=== PATIENT | male | born 1985 | race Caucasian/White ===

== ENCOUNTER 2020-06-04 19:44 | Emergency (ER) | payer OTHER, SELFPAY ==
[2020-06-04] MEDS ORDERED: FENTANYL CITR 100 MCG/2 ML ONE (20:02)
[2020-06-04] MEDS ORDERED: NA CHLORIDE 0.9% 1,000 ML ONE (20:03)
[2020-06-04] MEDS ORDERED: CEFAZOLIN/SWI 1gm 1 GM/10 ML SYR ONE (20:07)
[2020-06-04] MEDS ORDERED: TETANUS & DIPHTHERIA TOX,ADULT 0.5 ML VIAL ONE (20:12)
[2020-06-04] MEDS ORDERED: ONDANSETRON 4 MG/2 ML VIAL ONE (20:20)
[2020-06-04 20:23] LABS: Absolute Lymphocytes (CBC) 5.1 K/uL (0.7-4.9); Basophils % 0.7 % (0-1.3); Hematocrit 45.6 % (39.6-49.0); Lymphocytes % 45.3 % (15.3-44.8); MPV 8.5 fL (7.6-11.3)
[2020-06-04 20:24] LABS: Protime INR 1.02
[2020-06-04 20:39] LABS: ALT/SGPT 63 U/L (12-78); AST/SGOT 43 U/L (15-37); Albumin 4.2 g/dL (3.4-5.0); Alkaline Phosphatase 83 U/L (45-117); BUN Blood Urea Nitrogen 9 mg/dL (7-18); Bicarbonate 22 mmol/L (21-32); Bilirubin Direct < 0.1 mg/dL (0-0.2); Bilirubin Total 0.3 mg/dL (0.2-1.0); Glucose Level 115 mg/dL (74-106); Potassium 3.5 mmol/L (3.5-5.1); Protein, Total 8.5 g/dL (6.4-8.2); Sodium Level 142 mmol/L (136-145); Troponin (Emerg Dept Use Only) < 0.02 ng/mL (0.0-0.045)
--- NOTE | 2020-06-04 21:03 | RAD REPORT ---
EXAM DESCRIPTION: CT - Facial Bones W/ Mpr - 06/04/2020 8:31 pm CLINICAL HISTORY: Facial injury status post fall with facial pain COMPARISON: None TECHNIQUE: Computed axial tomography of the face was obtained. Coronal and sagittal reconstruction w as performed. All CT scans are performed using dose optimization technique as appropriate and may include automated exposure control or mA/KV adjustment according to patient size. FINDINGS: Laceration involves the soft tissue anterior to the left maxilla extending inferiorly. A couple tiny avulsed bone fragments from the anterior cortex of the left mandible near midline. Mildly displaced fracture of the left maxillary alveolar ridge. The underlying incisor tooth is absen t. Nondisplaced fracture anterior wall left maxillary sinus. No TMJ dislocation Globes are intact IMPRESSION: Laceration involves the soft tissue anterior to the left maxilla extending inferiorly. A couple tiny avulsed bone fragments from the anterior cortex of the left mandible near midline. Mildly displaced fracture of the left maxillary alveolar ridge. The underlying incisor tooth is absen t. Nondisplaced fracture anterior wall left maxillary sinus.
[2020-06-04] MEDS ORDERED: MORPHINE 4 MG/ML SYR ONE ×2 (21:04→22:41)
--- NOTE | 2020-06-04 21:05 | RAD REPORT ---
EXAM DESCRIPTION: CT - Head C Spine Cap Clare Francisco - 06/04/2020 8:31 pm CLINICAL HISTORY: Head and neck injury with chest and abdominal pain status post fall. Head and neck pain . TECHNIQUE: Computed axial tomography of the head and cervical spine was obtained Computed axial tomography of the chest, abdomen and pelvis was obtained. 100 cc Isovue-300 was given intravenously coronal and sagittal reconstruction was performed. All CT scans are performed using dose optimization technique as appropriate and may include automated exposure control or mA/KV adjustment according to patient size. COMPARISON: CT abdomen 2015. FINDINGS: An intracranial bleed is not seen. The ventricles are normal in caliber. An extra-axial fl uid collection is not noted. A cervical fracture is not seen. No dislocation is seen. A mediastinal hematoma is not noted. A pleural effusion is not present. A lung contusion is not seen. The liver, spleen, pancreas, adrenals, kidneys and bladder do not demonstrate a traumatic injury. Mildly to moderately displaced distal radial fracture. Avulsion fracture ulnar styloid process IMPRESSION: 1. No acute intracranial abnormality is seen 2. A cervical fracture is not visualized. If the patient continues have symptoms to suggest intracran ial/spinal cord pathology then MRI would be recommended. 3. No traumatic injury involving the chest, abdomen or pelvis is seen.
--- NOTE | 2020-06-04 21:08 | RAD REPORT ---
EXAM DESCRIPTION: RAD - Wrist Right 3 View - 06/04/2020 8:30 pm CLINICAL HISTORY: Right wrist pain status post injury FINDINGS: A mildly to moderately displaced comminuted fracture distal radius. Avulsion fracture ulna r styloid process. No dislocation
--- NOTE | 2020-06-04 21:08 | RAD REPORT ---
EXAM DESCRIPTION: Anna Single View06/04/2020 8:29 pm CLINICAL HISTORY: Chest pain COMPARISON: 2013 FINDINGS: The lungs appear clear of acute infiltrate. The heart is normal size IMPRESSION: No acute abnormalities displayed
--- NOTE | 2020-06-04 21:52 | ER ---
Nurse's Notes [facility] Name: Ronan Orozco Age: 34 yrs Sex: Male : 1985 Arrival Date: 06/04/2020 Time: 19:44 Bed 8 Private MD: Diagnosis: Fall on and from ladder;Displaced Comminuted fracture of Right Distal Radius;Laceration of lip and oral cavity without foreign body-lower;Fracture of unspecified part of body of mandible-left;Maxillary fracture, unspecified-alveolar ridge;Left Maxillary Sinus Fracture of Anterior Wall Presentation: 06/04 19:46 Chief complaint: Spouse and/or significant other states: States patient was on ladder lp1 about 5ft up with chainsaw, fell, cutting face on chainsaw; Laceration to lower lip extending to chin with missing top teeth; States pain to right wrist, denies any other pain; Denies LOC. 19:46 Method Of Arrival: Ambulatory lp1 19:46 Coronavirus screen: Client denies travel out of the [place] in the last 14 days. At this lp1 time, the client does not indicate any symptoms associated with coronavirus-19. Ebola Screen: No symptoms or risks identified at this time. Complicating Factors: The patient fell landing on an outstretched hand. Initial Sepsis Screen: Does the patient meet any 2 criteria? No. Patient's initial sepsis screen is negative. Does the patient have a suspected source of infection? No. Patient's initial sepsis screen is negative. Risk Assessment: Do you want to hurt yourself or someone else? Patient reports no desire to harm self or others. Onset of symptoms was June 04, 2020 at 19:15. 19:46 Acuity: DAREN 2 lp1 20:07 Care prior to arrival: None. Mechanism of Injury: Laceration sustained at home, while lp1 doing yard work, from power saw, Injury was accidental. Trauma event details: Injury occurred in the [facility], Injury occurred: at home. Injury occurred: June 04, 2020 Injury occurred at: 19:15. Trauma Activation: Alert Physician: ED Physician; Name: Dr. Baires; Notified At: 19:46; Arrived At: 19:46 Physician: General Surgeon; Name: N/A; Notified At: 19:46; Arrived At: Physician: Radiology; Name: Murtaza Morris; Notified At: 19:46; Arrived At: 19:48 Physician: Respiratory; Name: N/A; Notified At: 19:46; Arrived At: Physician: Lab; Name: N/A; Notified At: 19:46; Arrived At: Historical: - Allergies: 20:10 No Known Allergies; lp1 - Home Meds: 20:10 Suboxone sublingual sublingual [Active]; Adderall XR Oral [Active]; lp1 - PMHx: 20:10 None; lp1 - PSHx: 20:10 None; lp1 - Immunization history: Last tetanus immunization: unknown. - Social history:: Smoking status: Patient reports the use of cigarette tobacco products, smokes one pack cigarettes per day. Screenin:16 Abuse screen: Denies threats or abuse. Denies injuries from another. Nutritional lp1 screening: No deficits noted. Tuberculosis screening: No symptoms or risk factors identified. 22:09 Fall Risk Fall in past 12 months (25 points). mg2 Primary Survey: 19:50 NO uncontrolled hemorrhage observed. A: The patient is alert. Airway: patent, No lp1 supplemental oxygen in use on arrival. Breathing/Chest: Respiratory pattern: regular, Respiratory effort: spontaneous, unlabored. Circulation: Skin color: pale, Skin temperature: diaphoretic. Disability Alert. Exposure/Environment: All clothing and personal items were removed. There is no evidence of uncontrolled external bleeding. Obvious injury(ies) are noted at this time: Laceration to lower lip, bleeding controlled; Reports pain to right wrist. 22:08 Reassessment Airway Airway Patent Breathing/Chest Respiratory pattern Regular mg2 Respiratory effort Spontaneous Unlabored Disability Alert. Assessment: 20:16 General: Appears in no apparent distress. uncomfortable, Behavior is cooperative. Pain: mg2 Complains of pain in chin and mouth. Neuro: Level of Consciousness is awake, alert, obeys commands, Oriented to person, place, time, situation. Cardiovascular: Capillary refill < 3 seconds. Respiratory: Airway is patent Respiratory effort is even, unlabored, Respiratory pattern is regular, symmetrical. GI: No signs and/or symptoms were reported involving the gastrointestinal system. : No signs and/or symptoms were reported regarding the genitourinary system. EENT: Absence of teeth noted - upper right central incisor (#8) laceration noted. Derm: Wound noted chin and mouth. Musculoskeletal: Capillary refill < 3 seconds. Injury Description: Laceration sustained to chin and mouth is 7.6 to 20 cm long, mild bleeding noted was sustained 30-60 minutes ago. is bleeding a small amount. 21:00 Reassessment: Patient appears in no apparent distress at this time. Patient and/or mg2 family updated on plan of care and expected duration. Pain level reassessed. Patient is alert, oriented x 3, equal unlabored respirations, skin warm/dry/pink. 21:48 Reassessment: Report called to Angel PHILLIP at [facility]. ea 22:36 Reassessment: Patient and/or family updated on plan of care and expected duration. Pain ea level reassessed. Patient is alert, oriented x 3, equal unlabored respirations, skin warm/dry/pink. [facility] at facility for transfer, pt left ED via stretcher per EMS, pt tolerating well. Vital Signs: 19:46 BP 120 / 77; Pulse 91; Resp 18; Pulse Ox 99% on R/A; Weight 120.2 kg (R); Pain 10/10; lp1 21:00 BP 145 / 80; Pulse 80; Resp 18; Pulse Ox 100% on R/A; mg2 22:00 BP 150 / 68; Pulse 89; Resp 18; Temp 97.3(TE); Pulse Ox 100% on R/A; mg2 Regina Coma Score: 19:50 Eye Response: spontaneous(4). Verbal Response: oriented(5). Motor Response: obeys lp1 commands(6). Total: 15. 22:00 Eye Response: spontaneous(4). Verbal Response: oriented(5). Motor Response: obeys mg2 commands(6). Total: 15. 22:38 Eye Response: spontaneous(4). Verbal Response: oriented(5). Motor Response: obeys ea commands(6). Total: 15. Trauma Score (Adult): 19:50 Eye Response: spontaneous(1); Verbal Response: oriented(1); Motor Response: obeys lp1 commands(2); Systolic BP: > 89 mm Hg(4); Respiratory Rate: 10 to 29 per min(4); [place] Score: 15; Trauma Score: 12 22:00 Eye Response: spontaneous(1); Verbal Response: oriented(1); Motor Response: obeys mg2 commands(2); Systolic BP: > 89 mm Hg(4); Respiratory Rate: 10 to 29 per min(4); Regina Score: 15; Trauma Score: 12 22:00 Eye Response: spontaneous(1); Verbal Response: oriented(1); Motor Response: obeys mg2 commands(2); Systolic BP: > 89 mm Hg(4); Respiratory Rate: 10 to 29 per min(4); Regina Score: 15; Trauma Score: 12 ED Course: 19:44 Patient arrived in ED. am2 19:50 Inserted saline lock: 18 gauge in right antecubital area, using aseptic technique. lp1 Blood collected. By MARJAN Lopez. 19:55 Sb Crowell PA is PHCP. cp 19:55 Jonas Baires MD is Attending Physician. cp 20:00 Inserted saline lock: 18 gauge in left antecubital area, using aseptic technique. lp1 20:00 Patient maintains SpO2 saturation greater than 95% on room air. lp1 20:03 Arm band placed on left wrist. lp1 20:06 Triage completed. lp1 20:14 John Benedict, MARJAN is Primary Nurse. mg2 20:18 Thermoregulation: warm blanket given to patient. mg2 20:18 Patient has correct armband on for positive identification. vehicle monitor technician on. Pulse mg2 ox on. NIBP on. 20:30 XRAY Chest (1 view) In Process Unspecified. EDMS 20:30 XRAY Wrist RIGHT 3 view In Process Unspecified. EDMS 20:31 CT Facial Bones W/O Con In Process Unspecified. EDMS 20:31 CT Traumagram (Head C Spine CAP W Con) In Process Unspecified. EDMS 21:13 Orthoglass splint: Sugar tong splint applied on right arm. Sling applied to right arm. dh4 21:30 Initiated transfer for [facility]. Spoke with Latha Hamm pt. diagnosis is ar5 open fracture to left mandible, left maxillary alveolar ridge fracture, comminuted nondisplaced fracture to left distal radius. Pt. needs trauma. 21:41 Dr. Lucrecia Montiel accepted without consult. Acceptance given by Primitivo Hamm. Pt. going to ar5 [facility] ER Call report to [phone]. 22:08 No provider procedures requiring assistance completed. Patient transferred, IV remains mg2 in place. 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 Exp: mg2 08/14/2021. Lot #: [id number]. } Route: IM; Site: right deltoid; 22:07 Follow up: Response: No adverse reaction mg2 20:15 Drug: Ancef 1 grams Route: IVPB; Site: right antecubital; mg2 22:07 Follow up: Response: No adverse reaction; IV Status: Completed infusion mg2 20:16 Drug: NS 0.9% 1000 ml Route: IV; Rate: 1000 ml; Site: right antecubital; mg2 22:06 Follow up: Response: No adverse reaction; IV Status: Completed infusion; IV Intake: mg2 1000ml 21:00 Drug: morphine 4 mg Route: IVP; Site: left antecubital; mg2 22:07 Follow up: Response: No adverse reaction; Marked relief of symptoms mg2 22:36 Drug: Zofran (Ondansetron) 4 mg Route: IVP; Site: left antecubital; mg2 22:40 Follow up: Response: No adverse reaction ea 22:36 Drug: morphine 4 mg Route: IVP; Site: left antecubital; mg2 22:40 Follow up: Response: No adverse reaction ea Intake: 06/03 23:00 PO: 0ml; Total: 0ml. ea 06/04 22:06 IV: 1000ml; Total: 1000ml. mg2 Outcome: 21:51 ER care complete, transfer ordered by cp 22:00 Patient's length of stay was not longer than 2 hours. ea 22:36 Transferred by ground EMS to [facility], Transfer form completed. mg2 22:36 Condition: stable 22:36 Instructed on the need for transfer, Demonstrated understanding of instructions. 22:36 Patient left the ED. mg2 Signatures: Dispatcher [employer] EDMS Rita Gastelum RN RN lp1 Sb Crowell PA PA cp Moreno, Amanda am2 Day Curiel RN RN ea Gardose, Michele, RN RN mg2 Graciela Duong ar5 Luis Martin [facility]: (The following items were deleted from the chart) 20:06 19:46 Chief complaint: Spouse and/or significant other states: States patient was on lp1 ladder with chainsaw, fell, cutting face on chainsaw; Laceration to lower lip extending to chin with missing top teeth; States pain to right wrist, denies any other pain; Denies LOC lp1
--- NOTE | 2020-06-04 21:52 | EDPHYS ---
Physician Documentation [facility] Name: Ronan Orozco Age: 34 yrs Sex: Male : 1985 Arrival Date: 06/04/2020 Time: 19:44 Bed 8 Private MD: ED Physician Jonas Baires HPI: 06/04 20:02 This 34 yrs old Male presents to ER via Unassigned with complaints of cp Laceration, Fall Injury. 20:02 Trauma demographics: County: The injury occurred in [place] Location of Injury: The cp injury occurred at home, Date: June 04, 2020. Mechanism of injury: Fall: the patient fell from a ladder approximately approximately 5 feet. Associated injuries: The patient sustained injury to the head, laceration, of the mouth and chin. Onset: The symptoms/episode began/occurred just prior to arrival. 20:05 Patient reports he was cutting limbs of tree with chain saw when he fell from ladder. cp Historical: - Allergies: 20:10 No Known Allergies; lp1 - Home Meds: 20:10 Suboxone sublingual sublingual [Active]; Adderall XR Oral [Active]; lp1 - PMHx: 20:10 None; lp1 - PSHx: 20:10 None; lp1 - Immunization history: Last tetanus immunization: unknown. - Social history:: Smoking status: Patient reports the use of cigarette tobacco products, smokes one pack cigarettes per day. ROS: 20:03 ENT: Positive for dental pain. cp 20:03 Cardiovascular: Negative for chest pain. 20:03 Respiratory: Negative for shortness of breath, wheezing. 20:03 Abdomen/GI: Negative for abdominal pain, nausea, vomiting, and diarrhea. 20:03 Skin: Positive for laceration(s), of the chin and mouth. 20:03 Neuro: Negative for altered mental status. 20:05 MS/extremity: Positive for pain, swelling, tenderness, of the right wrist. cp 20:05 All other systems are negative. Exam: 20:10 Constitutional: The patient appears in no acute distress, alert, awake, well developed, cp well nourished, diaphoretic. 20:10 Head/face: Noted is a laceration(s), that is deep, that is jagged, of the left chin cp and left side of lip and mouth, Sinus tenderness, that is moderate, is located over the left maxillary sinus. 20:10 Eyes: Periorbital structures: appear normal, Pupils: equal, round, and reactive to light and accomodation, Extraocular movements: intact throughout, Conjunctiva: normal, no exudate, no injection, Sclera: no appreciated abnormality, Lids and lashes: appear normal, bilaterally. 20:10 ENT: External ear(s): are unremarkable, Nose: is normal, Posterior pharynx: Airway: no evidence of obstruction, patent, Dental exam: missing teeth, specifically the upper left central incisor (#9). 20:10 Neck: C-spine: C-collar placed in ED, vertebral tenderness, is not appreciated, crepitus, is not appreciated. 20:10 Chest/axilla: Inspection: normal, Palpation: is normal, no crepitus, no tenderness. 20:10 Cardiovascular: Rate: normal, Rhythm: regular. 20:10 Respiratory: the patient does not display signs of respiratory distress, Respirations: normal, no use of accessory muscles, no retractions, labored breathing, is not present, Breath sounds: are clear throughout, no decreased breath sounds, no stridor, no wheezing. 20:10 Abdomen/GI: Inspection: abdomen appears normal, Bowel sounds: active, all quadrants, Palpation: abdomen is soft and non-tender, in all quadrants, rebound tenderness, is not appreciated, voluntary guarding, is not appreciated, involuntary guarding, is not appreciated. 20:10 Back: pain, is absent, ROM is normal. 20:10 Musculoskeletal/extremity: Extremities: grossly normal except: noted in the right wrist: decreased ROM, deformity, pain, swelling, tenderness, ROM: limited passive range of motion due to pain, in the right wrist, Pulses: noted to be 2+ in the right radial artery and left radial artery. 20:10 Neuro: Orientation: to person, place \T\ time. Mentation: is normal, Motor: moves all fours, strength is normal. 20:45 ECG was reviewed by the Attending Physician. cp Vital Signs: 19:46 BP 120 / 77; Pulse 91; Resp 18; Pulse Ox 99% on R/A; Weight 120.2 kg (R); Pain 10/10; lp1 21:00 BP 145 / 80; Pulse 80; Resp 18; Pulse Ox 100% on R/A; mg2 22:00 BP 150 / 68; Pulse 89; Resp 18; Temp 97.3(TE); Pulse Ox 100% on R/A; mg2 Gary Coma Score: 19:50 Eye Response: spontaneous(4). Verbal Response: oriented(5). Motor Response: obeys lp1 commands(6). Total: 15. 22:00 Eye Response: spontaneous(4). Verbal Response: oriented(5). Motor Response: obeys mg2 commands(6). Total: 15. 22:38 Eye Response: spontaneous(4). Verbal Response: oriented(5). Motor Response: obeys ea commands(6). Total: 15. Trauma Score (Adult): 19:50 Eye Response: spontaneous(1); Verbal Response: oriented(1); Motor Response: obeys lp1 commands(2); Systolic BP: > 89 mm Hg(4); Respiratory Rate: 10 to 29 per min(4); Gary Score: 15; Trauma Score: 12 22:00 Eye Response: spontaneous(1); Verbal Response: oriented(1); Motor Response: obeys mg2 commands(2); Systolic BP: > 89 mm Hg(4); Respiratory Rate: 10 to 29 per min(4); Regina Score: 15; Trauma Score: 12 22:00 Eye Response: spontaneous(1); Verbal Response: oriented(1); Motor Response: obeys mg2 commands(2); Systolic BP: > 89 mm Hg(4); Respiratory Rate: 10 to 29 per min(4); Regina Score: 15; Trauma Score: 12 MDM: 19:58 Patient medically screened. cp 20:10 Differential diagnosis: intra-abdominal injury, closed head injury, extremity fracture, cp C spine fracture, T spine fracture, L spine fracture, multiple trauma. 21:20 Data reviewed: vital signs, nurses notes, lab test result(s), EKG, radiologic studies, cp CT scan, plain films, I have discussed the patient's presentation/case with the attending Emergency Department Physician; and as a result, I will transfer patient. 21:20 Test interpretation: by ED physician or midlevel provider: ECG, xrays of right wrist cp show displaced comminuted fracture of right distal radius. Counseling: I had a detailed discussion with the patient and/or guardian regarding: the historical points, exam findings, and any diagnostic results supporting the discharge/admit diagnosis, lab results, radiology results, the need to transfer to another facility, [facility] does not immediately have the required specialist. Response to treatment: the patient's symptoms have markedly improved after treatment. 06/04 19:58 Order name: Basic Metabolic Panel; Complete Time: 20:59 cp 06/04 20:59 Interpretation: Normal except: CL 110; GLUC 115; GFR 85. cp 06/04 19:58 Order name: CBC with Diff; Complete Time: 20:59 cp 06/04 19:58 Order name: LFT's; Complete Time: 20:59 cp 06/04 19:58 Order name: PT-INR; Complete Time: 20:59 cp 06/04 19:58 Order name: Troponin (emerg Dept Use Only); Complete Time: 20:59 cp 06/04 19:58 Order name: XRAY Chest (1 view); Complete Time: 21:14 cp 06/04 19:58 Order name: CT Facial Bones W/O Con; Complete Time: 21:14 cp 06/04 19:58 Order name: XRAY Wrist RIGHT 3 view; Complete Time: 21:14 cp 06/04 19:58 Order name: CT Traumagram (Head C Spine CAP W Con); Complete Time: 21:14 cp 06/04 19:58 Order name: C-Collar; Complete Time: 20:15 cp 06/04 19:58 Order name: EKG; Complete Time: 19:58 cp 06/04 19:58 Order name: Cardiac monitoring; Complete Time: 20:15 cp 06/04 19:58 Order name: EKG - Nurse/Tech; Complete Time: 20:42 cp 06/04 19:58 Order name: IV Saline Lock; Complete Time: 20:15 cp 06/04 19:58 Order name: Labs collected and sent; Complete Time: 20:15 cp 06/04 19:58 Order name: O2 Per Protocol; Complete Time: 20:15 cp 06/04 19:58 Order name: O2 Sat Monitoring; Complete Time: 20:15 cp 06/04 19:58 Order name: IV; Complete Time: 20:14 cp 06/04 20:18 Order name: Splint - Sugar Tong - Forearm: right wrist; Complete Time: 21:08 cp EC:45 Rate is 74 beats/min. Rhythm is regular. NM interval is normal. QRS interval is cp prolonged at 106 msec. QT interval is normal. T waves are Inverted in lead aVR. Interpreted by me. Reviewed by me. 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 Exp: mg2 08/14/2021. Lot #: [id number]. } Route: IM; Site: right deltoid; 22:07 Follow up: Response: No adverse reaction mg2 20:15 Drug: Ancef 1 grams Route: IVPB; Site: right antecubital; mg2 22:07 Follow up: Response: No adverse reaction; IV Status: Completed infusion mg2 20:16 Drug: NS 0.9% 1000 ml Route: IV; Rate: 1000 ml; Site: right antecubital; mg2 22:06 Follow up: Response: No adverse reaction; IV Status: Completed infusion; IV Intake: mg2 1000ml 21:00 Drug: morphine 4 mg Route: IVP; Site: left antecubital; mg2 22:07 Follow up: Response: No adverse reaction; Marked relief of symptoms mg2 22:36 Drug: Zofran (Ondansetron) 4 mg Route: IVP; Site: left antecubital; mg2 22:40 Follow up: Response: No adverse reaction ea 22:36 Drug: morphine 4 mg Route: IVP; Site: left antecubital; mg2 22:40 Follow up: Response: No adverse reaction ea Disposition: 22:00 Chart complete. cp 06/05 05:05 Co-signature as Attending Physician, Jonas Baires MD. mh7 Disposition: 06/04/20 21:51 Transfer ordered to [facility]. Diagnosis are Fall on and from ladder, Displaced Comminuted fracture of Right Distal Radius, Laceration of lip and oral cavity without foreign body - lower, Fracture of unspecified part of body of mandible - left, Maxillary fracture, unspecified - alveolar ridge, Left Maxillary Sinus Fracture of Anterior Wall. - Reason for transfer: Higher level of care. - Accepting physician is DR Montiel. - Condition is Stable. - Problem is new. - Symptoms have improved. 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 Diagnosis is Fall cp on and from ladder; Displaced Comminuted fracture of Right Distal Radius; Laceration of lip and oral cavity without foreign body - lower. Reason for transfer: Higher level of care. Accepting physician is DR Montiel. Condition is Stable. Problem is new. Symptoms have improved. cp 21:56 21:55 06/04/2020 21:51 Transfer ordered to [facility]. Diagnosis is Fall cp on and from ladder; Displaced Comminuted fracture of Right Distal Radius; Laceration of lip and oral cavity without foreign body - lower; Fracture of unspecified part of body of mandible - left; Maxillary fracture, unspecified - alveolar ridge; Maxillary Sinus Fracture of Anterior Wall. Reason for transfer: Higher level of care. Accepting physician is DR Montiel. Condition is Stable. Problem is new. Symptoms have improved. cp 22:36 21:56 06/04/2020 21:51 Transfer ordered to [facility]. Diagnosis is Fall mg2 on and from ladder; Displaced Comminuted fracture of Right Distal Radius; Laceration of lip and oral cavity without foreign body - lower; Fracture of unspecified part of body of mandible - left; Maxillary fracture, unspecified - alveolar ridge; Left Maxillary Sinus Fracture of Anterior Wall. Reason for transfer: Higher level of care. Accepting physician is DR Montiel. Condition is Stable. Problem is new. Symptoms have improved. cp
[2020-06-04 22:45] VITALS: BP 150/68; TEMP 97.3; O2SAT 100
== END 2020-06-04 22:36 | disposition short-term general hospital (02) ==
LOC: ER 19:44
PROC: 2W3CX1Z Immobilization of Right Lower Arm using Splint (ICD-10-PCS; principal; 2020-06-04)
DX: S52.501A Unspecified fracture of the lower end of right radius, initial encounter for closed fracture (principal); S02.609A Fracture of mandible, unspecified, initial encounter for closed fracture; S02.42XA Fracture of alveolus of maxilla, initial encounter for closed fracture; S02.40DA Maxillary fracture, left side, initial encounter for closed fracture; W11.XXXA Fall on and from ladder, initial encounter; Y93.89 Activity, other specified; Y92.9 Unspecified place or not applicable; F17.210 Nicotine dependence, cigarettes, uncomplicated; Z23 Encounter for immunization
CPT/HCPCS: 93005; 85025; 80048; 36415; 85610; 80076; 84484; 70450; 72125; 71260; 70486; 76377; 74177; 71045; 73110; 90471; 90714; 99285; 29125; Q9967; J3010; J0690; J7030; J2405; G0390

== ENCOUNTER 2021-12-22 16:06 | Emergency (ER) | payer BC, SELFPAY ==
--- OUTSIDE RECORDS SUMMARY | 2021-12-22 16:08 | XMS REPORT | Continuity of Care Document ---
:1985 Author Organization [facility] t Address [address] [place] [address] Care Team Providers Name Role Phone Shai PHILLIP Attending Clinician Unavailable Calvin RENE Attending Clinician Unavailable Only, Bls Test Attending Clinician Unavailable Edgard KABA, Calvin Attending Clinician Problems This patient has no known problems. Allergies, Adverse Reactions, Alerts Allergy Allergy Status Severity Reaction(s) Onset Inactive Treating Comm ents Source Name Type Date Date Clinician NO KNOWN Drug Active Univers ALLERGIE Class ity of [facility] Social History Social Habit Start Date Stop Date Quantity Comments Source Sex [facility] Exposure to SARS-CoV-2 Not sure [facility] [place] [facility] Smoking Status Start Date Stop Date Source Unknown if ever smoked [facility]it y [facility] Medications This patient has no known medications. Procedures This patient has no known procedures. Encounters Start End Encounter Admission Attending Care Care Encounter Source Date/Time Date/Time Type Type Clinicians Facility Department ID 2020-03-13 2020-03-13 Outpatient R [facility] [id number] Univers 10:45:00 10:45:00 [id number] [facility] 2020-03-12 2020-03-12 Telephone ASHA Gibbons [id number] Univers 00:00:00 00:00:00 Supriya SALDIVAR [id number] it y of [facility] [id number] Jah as [id number] [address] 2020-03-12 2020-03-12 Letter ASHA Gibbons [id number] Univers 00:00:00 00:00:00 (Out) Supriya SALDIVAR [id number] it y of [facility] [id number] Jah as [id number] [address] 2020-03-11 2020-03-11 Outpatient R EDGARD [facility] [id number] Univers 12:50:00 12:50:[address] [facility] 2020-03-11 2020-03-11 Laboratory Only, Clc Bls Test [facility] [id number] Univers 11:44:43 11:59:43 Only Kan Rene A [facility] [id number] ity of [place] [id number] [facility] [id number] [place] [id number] [address] Results This patient has no known results.
[2021-12-22 18:25] LABS: Urine Blood Trace-intact (Negative); Urine Glucose Negative (Negative); Urine Protein Negative (Negative); Urine Specific Gravity 1.025 (1.005-1.030)
[2021-12-22] MEDS ORDERED: KETOROLAC 30 MG/ML INJ ONE (18:48)
[2021-12-22] MEDS ORDERED: LIDOCAINE 4% PATCH ONE (18:48)
--- NOTE | 2021-12-22 18:58 | ER ---
Nurse's Notes [facility] Name: Ronan Orozco Age: 36 yrs Sex: Male : 1985 Arrival Date: 12/22/2021 Time: 16:13 Bed Treatment Private MD: Diagnosis: Low back pain Presentation: 12/22 16:22 Chief complaint: Patient states: "I have lower back pain for 2 months, but worse ab2 today." Pt denies any injury or trauma. Pt has full ROM. Coronavirus screen: Vaccine status: Patient reports being unvaccinated. Client denies travel out of the [place] in the last 14 days. At this time, the client does not indicate any symptoms associated with coronavirus-19. Ebola Screen: Patient negative for fever greater than or equal to 101.5 degrees Fahrenheit, and additional compatible Ebola Virus Disease symptoms Patient denies exposure to infectious person. Patient denies travel to an Ebola-affected area in the 21 days before illness onset. No symptoms or risks identified at this time. Initial Sepsis Screen: Does the patient meet any 2 criteria? No. Patient's initial sepsis screen is negative. Does the patient have a suspected source of infection? No. Patient's initial sepsis screen is negative. Risk Assessment: Do you want to hurt yourself or someone else? Patient reports no desire to harm self or others. Onset of symptoms is unknown. 16:22 Method Of Arrival: Ambulatory ab2 16:22 Acuity: DAREN 4 ab2 Triage Assessment: 16:24 General: Appears in no apparent distress. uncomfortable, Behavior is calm, cooperative, ab2 appropriate for age. Pain: Complains of pain in low back area. Neuro: Level of Consciousness is awake, alert, obeys commands, Oriented to person, place, time, situation, Appropriate for age Turner And Former Automatic are equal bilaterally Moves all extremities. Gait is steady, Speech is normal, Facial symmetry appears normal. Musculoskeletal: Range of motion: intact in all extremities, Reports pain in back. Historical: - Allergies: 16:23 No Known Allergies; ab2 - PMHx: 16:23 None; ab2 - PSHx: 16:23 None; ab2 - Immunization history:: Adult Immunizations up to date. - Social history:: Smoking status: Patient reports the use of cigarette tobacco products, smokes one-half pack cigarettes per day. Screenin:40 Abuse screen: Denies threats or abuse. Denies injuries from another. Nutritional ss screening: No deficits noted. Tuberculosis screening: Never had TB. Fall Risk None identified. Assessment: 18:40 General: Appears in no apparent distress. comfortable, Behavior is calm, cooperative. ss Pain: Complains of pain in low back area Pain currently is 8 out of 10 on a pain scale. Quality of pain is described as aching. Neuro: Level of Consciousness is awake, alert, obeys commands, Oriented to person, place, time, situation. Cardiovascular: Capillary refill < 3 seconds is brisk in bilateral fingers Patient's skin is warm and dry. Respiratory: Airway is patent Respiratory effort is even, unlabored, Respiratory pattern is regular, symmetrical. GI: No deficits noted. EENT: Nares are clear. Derm: Skin is intact, is healthy with good turgor, Skin is dry, Skin is pink, warm \\T\\ dry. normal. Vital Signs: 16:22 BP 176 / 102; Pulse 91; Resp 17; Temp 98.8; Pulse Ox 100% on R/A; Weight 117.93 kg; ab2 Height 5 ft. 11 in. (180.34 cm); Pain 9/10; 16:22 Body Mass Index 36.26 (117.93 kg, 180.34 cm) ab2 ED Course: 16:13 Patient arrived in ED. ds1 16:23 Triage completed. ab2 16:24 Arm band placed on left wrist. ab2 16:49 [facility] kb 16:49 Sb Rock MD is Attending Physician. kb 18:08 Sb Crowell PA is PHCP. cp 18:08 Sb Rock MD is Attending Physician. cp 18:29 Dana Winslow RN is Primary Nurse. ss 19:13 No provider procedures requiring assistance completed. Patient did not have IV access ss during this emergency room visit. Administered Medications: 18:53 Drug: Lidoderm Patch 5 % (700 mg/patch) 1 patches {Note: 4% available from pharmacy ss here. Placed to affected area.} Route: Topical; Site: affected area; 18:54 Drug: Ketorolac 60 mg Route: IM; Site: left gluteus; ss 19:13 Follow up: Response: No adverse reaction; Medication administered at discharge. Outcome: 18:58 Discharge ordered by . cp 19:13 Discharged to home ambulatory. 19:13 Condition: good 19:13 Discharge instructions given to patient, family, Instructed on discharge instructions, follow up and referral plans. medication usage, Demonstrated understanding of instructions, follow-up care, medications, Prescriptions given X 3. 19:14 Patient left the ED. Signatures: Charlotte House, IMELDA-C ENDBAND SIZER-Sanam Mcrae ds1 Dana Winslow, MARJAN RN Sb Crowell PA PA Florencio Pinon ab2
--- NOTE | 2021-12-22 18:59 | EDPHYS ---
Physician Documentation [facility] Name: Ronan Orozco Age: 36 yrs Sex: Male : 1985 Arrival Date: 12/22/2021 Time: 16:13 Bed Treatment Private MD: OTTO Physician Sb Rock HPI: 12/22 18:15 This 36 yrs old Male presents to ER via Ambulatory with complaints of Back Pain. cp 18:15 The patient presents with pain that is chronic, with no known mechanism of injury. The cp symptoms are located in the low back. Onset: The symptoms/episode began/occurred 2 month(s) ago. The pain radiates to the right leg and left leg. Associated signs and symptoms: Pertinent negatives: abdominal pain, chest pain, constipation, fever, hematuria, incontinence, numbness, urinary retention, weakness. The problem was sustained worse after climbing ladder at work. Modifying factors: the patient symptoms are aggravated by movement, walking. Severity of symptoms: in the emergency department the symptoms are unchanged, despite home interventions. 18:15 Patient denies fever, denies history of IV drug use. cp Historical: - Allergies: 16:23 No Known Allergies; ab2 - PMHx: 16:23 None; ab2 - PSHx: 16:23 None; ab2 - Immunization history:: Adult Immunizations up to date. - Social history:: Smoking status: Patient reports the use of cigarette tobacco products, smokes one-half pack cigarettes per day. ROS: 18:20 Constitutional: Negative for body aches, chills, fever, poor PO intake. cp 18:20 Eyes: Negative for injury, pain, redness, and discharge. cp 18:20 Neck: Negative for pain with movement, pain at rest, stiffness. 18:20 Cardiovascular: Negative for chest pain, edema, palpitations. 18:20 Respiratory: Negative for cough, shortness of breath, wheezing. 18:20 Abdomen/GI: Negative for abdominal pain, nausea, vomiting, and diarrhea, constipation, bowel incontinence. 18:20 Back: Positive for pain at rest, pain with movement, of the low back area. 18:20 : Negative for urinary symptoms, bladder incontinence. 18:20 Neuro: Negative for numbness, tingling, weakness. 18:20 All other systems are negative. Exam: 18:25 Constitutional: The patient appears in no acute distress, alert, awake, non-toxic, well cp developed, well nourished. 18:25 Head/Face: Normocephalic, atraumatic. cp 18:25 Eyes: Periorbital structures: appear normal, Conjunctiva: normal, no exudate, no injection, Sclera: no appreciated abnormality, Lids and lashes: appear normal, bilaterally. 18:25 ENT: External ear(s): are unremarkable, Nose: is normal, Mouth: Lips: moist, Oral mucosa: moist, Posterior pharynx: Airway: no evidence of obstruction, patent. 18:25 Neck: ROM/movement: is normal, is supple, without pain, no range of motions limitations. 18:25 Chest/axilla: Inspection: normal. 18:25 Cardiovascular: Rate: normal. 18:25 Respiratory: the patient does not display signs of respiratory distress, Respirations: normal, no use of accessory muscles, no retractions, labored breathing, is not present. 18:25 Abdomen/GI: Inspection: abdomen appears normal, Palpation: abdomen is soft and non-tender, in all quadrants. 18:25 Back: pain, that is moderate, of the low back area, ROM is painful, Straight leg raises: of both lower extremities does not illicit pain. 18:25 Neuro: Motor: moves all fours, strength is normal, Sensation: is normal, Gait: is steady, Deep tendon reflexes are 2+ (normal) in the right patellar, right Achilles, left patellar and left Achilles. Vital Signs: 16:22 BP 176 / 102; Pulse 91; Resp 17; Temp 98.8; Pulse Ox 100% on R/A; Weight 117.93 kg; ab2 Height 5 ft. 11 in. (180.34 cm); Pain 9/10; 16:22 Body Mass Index 36.26 (117.93 kg, 180.34 cm) ab2 MDM: 18:11 Patient medically screened. cp 18:40 Differential diagnosis: chronic back pain, Pyelonephritis spinal injury, cp Ureterolithiasis spinal stenosis, cauda equina. 18:58 Data reviewed: vital signs, nurses notes. cp 18:58 Counseling: I had a detailed discussion with the patient and/or guardian regarding: the cp historical points, exam findings, and any diagnostic results supporting the discharge/admit diagnosis, the need for outpatient follow up, for definitive care, a family practitioner, to return to the emergency department if symptoms worsen or persist or if there are any questions or concerns that arise at home. Response to treatment: the patient's symptoms have mildly improved after treatment, and as a result, I will discharge patient. 12/22 18:26 Order name: Urine Dipstick-Ancillary; Complete Time: 18:35 EDDC 12/22 16:49 Order name: Urine Dipstick-Ancillary (obtain specimen); Complete Time: 18:18 kb Administered Medications: 18:53 Drug: Lidoderm Patch 5 % (700 mg/patch) 1 patches {Note: 4% available from pharmacy ss here. Placed to affected area.} Route: Topical; Site: affected area; 18:54 Drug: Ketorolac 60 mg Route: IM; Site: left gluteus; ss 19:13 Follow up: Response: No adverse reaction; Medication administered at discharge. Disposition Summary: 12/22/21 18:58 Discharge Ordered Location: Home cp Problem: new cp Symptoms: have improved cp Condition: Stable cp Diagnosis - Low back pain cp Followup: cp - With: Private Physician - When: 2 - 3 days - Reason: Recheck today's complaints Discharge Instructions: - Discharge Summary Sheet cp - Chronic Back Pain cp - Heat Therapy cp - Back Exercises cp Forms: - Medication Reconciliation Form cp - Thank You Letter cp - Antibiotic Education cp - Prescription Opioid Use cp - Work release form Prescriptions: - Lidoderm 5 % Topical adhesive patch,medicated - apply 1 patch by TOPICAL route once daily; 1 box; Refills: 0, Product Selection cp Permitted - Cyclobenzaprine 10 mg Oral Tablet - take 1 tablet by ORAL route every 8 hours As needed; 30 tablet; Refills: 0, cp Product Selection Permitted - Medrol (Suresh) 4 mg Oral Tablets, Dose Pack - take 1 tablet by ORAL route as directed - follow package instructions; 1 cp packet; Refills: 0, Product Selection Permitted Addendum: 12/28/2021 18:51 Co-signature as Attending Physician, Sb Rock MD I agree with the assessment and c sellers plan of care. Signatures: Charlotte House, FRACTIONATION SUPERVISOR-C FRACTIONATION SUPERVISOR-Sb Montes MD MD cha Smirch, Shelby RN RN Sb Crowell PA PA cp Bleininger, Florencio ab2
[2021-12-22 22:38] VITALS: BP 176/102; TEMP 98.8; O2SAT 100
== END 2021-12-22 19:14 | disposition home or self-care (01) ==
LOC: ER 16:06
DX: M54.50 Low back pain, unspecified (principal); F17.210 Nicotine dependence, cigarettes, uncomplicated
CPT/HCPCS: 81003; 96372; 99283